=== PATIENT | female | born 1985 | race Caucasian/White ===

== ENCOUNTER 2016-12-06 20:04 | Emergency (ER) | payer OTHER ==
[~2016-12-06] VITALS: Ht 154.9 cm; Wt 65.5 kg
[2016-12-06 20:13] VITALS: Ht 154.9 cm; Wt 65.5 kg
[2016-12-06] MEDS ORDERED: IBUPROFEN 600 MG TAB PO ONE (21:00)
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
[2016-12-06] MEDS ORDERED: IBUP-1542 PO (21:51)
[2016-12-06] MEDS ORDERED: ORPH100T PO (21:52)
[2016-12-06 22:02] VITALS: BP 125/91; PULSE 61; RESP 20; TEMP 98.1
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
== END 2016-12-06 22:02 | disposition home or self-care (01) ==
LOC: FTE 20:04
DX: Z04.1 Encounter for examination and observation following transport accident (principal)
CPT/HCPCS: 71010; 71100; 73630